=== PATIENT | male | born 1990 | race Caucasian/White ===

== ENCOUNTER 2024-02-25 19:19 | Emergency (ER) | payer MEDICAID, SELFPAY ==
[2024-02-25 19:20] VITALS: BP 172/98; PULSE 113; RESP 26; TEMP 36.5; O2SAT 98
[2024-02-25] MEDS: Acetaminophen 325 MG TAB 650 MG PO (19:29)
--- NOTE | 2024-02-25 19:55 | DI.RAD_ITS ---
Exam(s) XR ANKLE RT COMPLETE EXAM: XR ANKLE RT COMPLETE CLINICAL HISTORY: R lateral ankle pain after rolling ankle. TECHNIQUE: 2D digital imaging was performed. COMPARISON: No exams were available for comparison FINDINGS: 3 views There is prominent soft tissue swelling over the anterior and lateral aspects of the ankle. There is no evidence of acute fracture or widening the ankle mortise. Talar dome unremarkable. Base of the 5th metatarsal unremarkable. Bone density normal. No evidence of osseous tarsal coalition. IMPRESSION: Prominent soft tissue swelling. No acute osseous findings. DATA REPOSITORY: RADIATION DOSE DELIVERED:
--- NOTE | 2024-02-25 20:03 | W.ED.GENAD ---
Discharge Plan Disposition Patient Disposition: Home Discharge Details Clinical Impression: Right ankle sprain Primary Care Provider: None,None ED Provider: Arianna Ortiz Home Meds and New Rx's Prescriptions: No Action No Known Home Meds Discharge Instructions Instructions: Ankle sprain Additional Instructions: Please call orthopedics first thing Tuesday to schedule follow-up appointment for management of your ankle sprain. You may use ibuprofen 600 mg every 8 hours and Tylenol 650 mg every 6 hours as needed for discomfort. Elevate above heart level. Apply ice for 15 to 20 minutes at a time every hour as needed. Use the Gavino bandage and crutches to maintain weightbearing as tolerated, increasing weightbearing as you are able to. Return to emergency care if you develop any signs of neurovascular compromise such as coolness/blueness, numbness, color change to your foot, or if you are very worried and need to be rechecked again immediately Referrals: [facility] [Provider Group] Discharge Data Discharge Date/Time-TO BE ENTERED AT DEPARTURE: 02/25/24 21:13 HPI General Date/Time Provider Initiated Documentation: 02/25/24 19:22. HPI Narrative: Lucas is a 34 year old male who presents to the emergency dept today for evaluation of R ankle pain after rolling his ankle this evening. He has been unable to weight bear due to discomfort. No distal numbness/tingling, hip pain, knee pain, other injuries. No previous injury to this ankle other than sprains. Denies significant past medical history. Physical exam remarkable for significant swelling to lateral malleolus of right ankle. No overlying ecchymosis/abrasions/lacerations. Distal pulses intact. Sensation intact. Limited flexion/extension of right ankle. Full painless range of motion to right knee. Calf muscle is soft. DDx includes but is not limited to: Fracture, sprain, other soft tissue injury I independently interpreted the following tests: Right ankle x-ray negative, no acute bony abnormality. This was confirmed by radiologist. History presentation consistent with ankle sprain. Gavino bandage applied and crutches provided. Recommend weightbearing as tolerated. Reviewed discharge instructions, including follow-up with orthopedics, importance of physical therapy after healing, and symptomatic management. Educated on red flags indicate need for return to emergency care. Related Data Home Medications ?Medication ?Instructions ?Recorded ?Confirmed Unknown [No Known Home Meds] 02/25/24 02/25/24 Allergies Allergy/AdvReac Type Severity Reaction Status Date / Time No Known Allergies Allergy Unverified 02/25/24 19:21 General Stated Complaint: Orthopedic TANNER: 4 Review of Systems Narrative: see HPI Exam Const General: cooperative, healthy appearing, comfortable, no acute distress, well developed and well groomed Nutritional Appearance: average body habitus Resp Effort & Inspection: normal respiratory effort and able to speak in complete sentences Neuro Motor: muscle tone normal throughout and strength 5/5 throughout Sensory Exam: no sensory deficits noted Extrem Right lower extremity: knee Details: normal to inspection, ankle Details: tenderness and swelling Details: laterally; no unusual warmth, no abrasions, no lacerations, no ecchymosis, no crepitus, no foreign bodies and no penetrating wound and foot Details: normal to inspection Course Vital Signs Vital signs: Vital Signs Temperature 36.5 C 02/25/24 19:20 Pulse 113 H 02/25/24 19:20 Respiratory Rate 26 H 02/25/24 19:20 Blood Pressure 172/98 H 02/25/24 19:20 Pulse Oximetry 98 02/25/24 19:20 Temperature 36.5 C 02/25/24 19:20 Temperature Source Temporal Artery Scan 02/25/24 19:20 Pulse 113 H 02/25/24 19:20 Respiratory Rate 26 H 02/25/24 19:20 Respiratory Effort Normal, Non-Labored 02/25/24 19:22 Blood Pressure 172/98 H 02/25/24 19:20 Blood Pressure Position Sitting 02/25/24 19:20 Pulse Oximetry 98 02/25/24 19:20 Oxygen Delivery Method Room Air 02/25/24 19:20 Oxygen Flow Rate 0 02/25/24 19:20 Pain Level 8 02/25/24 19:20 Medical Decision Making Quality:SDOH Health Related Social Needs: No Data to Display PFSH All Active Problems (Updated 02/25/24 @ 21:09 by Arianna Garay) Right ankle sprain (Acute) Social History Smoking/Tobacco Use Status: Never Smoking risk assessment performed?: Yes Alcohol Intake: never Drug use: Never Substance use type: does not use
--- NOTE | 2024-02-25 20:13 | DI.VRAD_ITS ---
PROCEDURE INFORMATION: Exam: XR Right Ankle Exam date and time: 02/25/2024 7:40 PM Age: 34 years old Clinical indication: Injury or trauma; Fall; Blunt trauma; Right; Injury date: 02/25/24; Patient HX: R lateral ankle pain after rolling ankle TECHNIQUE: Imaging protocol: Radiologic exam of the right ankle. Views: 3 or more views. COMPARISON: No relevant prior studies available. FINDINGS: Bones/joints: Normal. Soft tissues: There is soft tissue swelling at the level of the lateral malleolus. Soft tissue swelling is noted at the anterior aspect of the distal ankle as well. IMPRESSION: Soft tissue swelling without evidence for fracture. Dictated and Authenticated by: Tyra Rueda MD. Ordering:CARLOS Keller MD
[2024-02-25 21:13] VITALS: PULSE 83; O2SAT 98
== END 2024-02-25 21:13 | disposition home or self-care (01) ==
PROVIDERS: Emergency Provider Nurse Practitioner Family
DX: S93.401A Sprain of unspecified ligament of right ankle, initial encounter (principal); W18.42XA Slipping, tripping and stumbling without falling due to stepping into hole or opening, initial encounter
CPT/HCPCS: 99283; 73610

== ENCOUNTER 2024-04-14 14:10 | Outpatient (CLI) | payer OTHER, SELFPAY ==
--- NOTE | 2024-04-14 | DI.RAD_ITS ---
Exam(s) XR CHEST 2V PA LATERAL EXAM: XR CHEST 2V PA LATERAL CLINICAL HISTORY: ICD 10: R05.9 cough, unspecified TECHNIQUE: 2D digital imaging was performed of the chest. Two images were obtained. PA and lateral views were obtained. COMPARISON: No exams were available for comparison FINDINGS: MEDIASTINUM: Normal. HEART: Normal. PULMONARY VASCULATURE: Normal. LUNGS: Clear. PLEURAL SPACE: No pleural effusion or pneumothorax. BONE:Within normal limits for the patient's age. OTHER FINDINGS:Normal. IMPRESSION: No acute pulmonary findings. DATA REPOSITORY: RADIATION DOSE DELIVERED:
--- NOTE | 2024-04-14 15:52 | DI.VRAD_ITS ---
PROCEDURE INFORMATION: Exam: XR Chest Exam date and time: 04/14/2024 2:21 PM Age: 34 years old Clinical indication: Other: Cough TECHNIQUE: Imaging protocol: Radiologic exam of the chest. Views: 2 views. COMPARISON: No relevant prior studies available. FINDINGS: Lungs: Unremarkable. No consolidation. Pleural spaces: Unremarkable. No pleural effusion. No pneumothorax. Heart/Mediastinum: Unremarkable. No cardiomegaly. Bones/joints: Unremarkable. IMPRESSION: No evidence for acute abnormality in the chest. Dictated and Authenticated by: Tyra Rueda MD. Ordering:LESLIE GIRALDO MD
== END 2024-04-14 14:30 ==
LOC: DI 14:21
PROVIDERS: Visit Provider Nurse Practitioner Family
DX: R05.9 Cough, unspecified (principal)
CPT/HCPCS: 71046